=== PATIENT | female | born 1970 | race Caucasian/White ===

== ENCOUNTER 2019-05-06 12:44 | Emergency (ER) | payer BC, OTHER ==
--- NOTE | 2019-05-06 14:02 | EDM.PDOC ---
ED HPI GENERAL MEDICAL PROBLEM - General Chief Complaint: Skin Complaint Stated Complaint: blisters, bruising Time Seen by Provider: 05/06/19 13:20 Source of Information: Reports: Patient History Limitations: Reports: No Limitations - History of Present Illness INITIAL COMMENTS - FREE TEXT/NARRATIVE: Elizabeth is a 48 yo female who presents to ER with complaints blisters to back of heels. She states the blisters started on the 24 of April from her current shoes she has been wearing as they are required at work. Today she noticed bruising to right ankle and increased swelling. She has noticed some increased warmth as well to the posterior aspect of the left ankle. She denies really any pain with it. She is concerned about infection to areas. She has been placing new skin over blisters, which has seemed to help. 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 ED EXAM, SKIN/RASH Exam: See Below Exam Limited By: No Limitations General Appearance: Alert, No Apparent Distress Extremities: Pedal Edema (increased pedal edema with swelling to left lower extremity), Joint Swelling (left ankle and foot), Increased Warmth (Surrounding left ankle), Other (Full ROM of left ankle/foot. ) Neurological: Alert, Oriented, Normal Cognition, No Motor/Sensory Deficits Psychiatric: Normal Affect, Normal Mood Skin: Ecchymosis (left foot) Location, Skin: Other (scabbed lesions to bilateral heels. Mild erythema surrounding blisters. ) Course - Vital Signs Last Recorded V/S: Last Vital Signs Temp 97.8 F 05/06/19 12:47 Pulse 68 05/06/19 12:47 Resp 18 05/06/19 12:47 BP 124/76 05/06/19 12:47 Pulse Ox 97 05/06/19 12:47 - Orders/Labs/Meds Orders: Active Orders 24 hr Category Date Time Status Ankle 2V Lt [CR] Stat Exams 05/06/19 13:32 Taken Foot 2V Lt [CR] Stat Exams 05/06/19 13:32 Taken VL Duplex Lwr Ext Veins Ltd Lt [US] Stat Exams 05/06/19 13:34 Ordered Departure - Departure Time of Disposition: 14:11 Disposition: Home, Self-Care 01 Clinical Impression: Metatarsal stress fracture of left foot Qualifiers: Encounter type: initial encounter Qualified Code(s): M84.375A - Stress fracture , left foot, initial encounter for fracture - Discharge Information Referrals: Autumn Lopez, [facility] [Primary Care Provider] - Additional Instructions: 1) Walking boot - may take off to ice 20 minutes at a time, 5 times a day 2) Advise non weight bearing until you see podiatry and then follow there recommendation 3) 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 Sepsis Event Note - Evaluation Sepsis Screening Result: No Definite Risk - Focused Exam Vital Signs: Vital Signs Temp Pulse Resp BP Pulse Ox 05/06/19 12:47 97.8 F 68 18 124/76 97 Date Exam was Performed: 05/06/19 Time Exam was Performed: 13:57 - Problem List & Annotations (1) Metatarsal stress fracture of left foot SNOMED Code(s): 229230964 Code(s): M84.375A - STRESS FRACTURE, LEFT FOOT, INITIAL ENCOUNTER FOR FRACTURE Status: Acute Current Visit: Yes Qualifiers: Encounter type: initial encounter Qualified Code(s): M84.375A - Stress fracture, left foot, initial encounter for fracture - My Orders Last 24 Hours: My Active Orders 05/06/19 13:32 Ankle 2V Lt [CR] Stat Foot 2V Lt [CR] Stat 05/06/19 13:34 VL Duplex Lwr Ext Veins Ltd Lt [US] Stat - Assessment/Plan Last 24 Hours: My Active Orders 05/06/19 13:32 Ankle 2V Lt [CR] Stat Foot 2V Lt [CR] Stat 05/06/19 13:34 VL Duplex Lwr Ext Veins Ltd Lt [US] Stat Plan: Ultrasound of left lower extremity was negative for DVT. Left foot x-ray did show a fracture of the 5th metatarsal. Walking boot applied today and advised to be non weightbearing. Will set up tomorrow with podiatry for further evaluation. See additional instructions.
== END 2019-05-06 14:24 | disposition home or self-care (01) ==
LOC: CC.ED 12:44
DX: M84.375A Stress fracture, left foot, initial encounter for fracture (principal); Z88.0 Allergy status to penicillin; Z79.899 Other long term (current) drug therapy
CPT/HCPCS: 73600-LT; 73620-LT; 93971-LT; 99283-25